=== PATIENT | female | born 1965 | race Caucasian/White ===

== ENCOUNTER 2019-05-06 07:27 | Day surgery (SDC) | payer BC ==
[~2019-05-06 07:27] MED LIST: Midazolam 1 MG/ML 2 ML SDV ONE; Propofol 200 MG/20 ML SDV ONE; fentaNYL 100 MCG/2 ML SDV ONE
[2019-05-06] MEDS ORDERED: Midazolam 1 MG/ML 2 ML SDV ONE (07:38)
[2019-05-06] MEDS ORDERED: fentaNYL 100 MCG/2 ML SDV ONE (07:38)
[2019-05-06] MEDS ORDERED: Propofol 200 MG/20 ML SDV ONE (07:38)
[2019-05-06] MEDS ORDERED: Sodium Chloride 0.9% 1,000 ML IV SCH (08:45)
--- NOTE | 2019-05-06 09:24 | OR ---
DATE OF PROCEDURE: 05/06/2019 SURGEON: Ketan Lynn MD PROCEDURE: Colonoscopy. FINDINGS: 1. Diverticulosis, mild, limited to sigmoid colon. 2. No other gross abnormalities. COMPLICATIONS: None. PER DIEM NURSE: None. ANESTHESIA: MAC. PREOPERATIVE DIAGNOSIS: Screening colonoscopy. POSTOPERATIVE DIAGNOSIS: Screening colonoscopy. RISKS: Risks, benefits, alternatives, and limitations including, but not limited to infection, bleeding, and perforation were explained to the patient, they wished to proceed. PROCEDURE IN DETAIL: The patient was placed in left lateral decubitus position. Digital rectal exam was performed without abnormality. Scope was introduced and advanced atraumatically to the ileocecal valve. A photo was taken of this. Scope was brought back through the ascending, transverse, descending colon, and retroflexed. No evidence of old or new blood. No masses. No polyps. The diverticulosis would be described as limited to sigmoid colon without evidence of old or new blood or infection. The patient tolerated the procedure well. Ketan Lynn MD /[id number]
[2019-05-06 09:50] VITALS: BP 109/57; PULSE 50
== END 2019-05-06 10:10 | disposition home or self-care (01) ==
LOC: JP.SDS 07:27
PROVIDERS: ATTEND Surgery
DX: Z12.11 Encounter for screening for malignant neoplasm of colon (principal); K57.30 Diverticulosis of large intestine without perforation or abscess without bleeding; J44.9 Chronic obstructive pulmonary disease, unspecified; F17.200 Nicotine dependence, unspecified, uncomplicated
CPT/HCPCS: 45378; J2250; J2704; J3010; J7030

== ENCOUNTER 2023-07-05 18:45 | Emergency (ER) | payer BC, OTHER ==
[2023-07-05 19:34] VITALS: BP 99/62; PULSE 71
[2023-07-05 20:05] LABS: BASOPHILS ABSOLUTE AUTO 0.06 K/uL (0.00-0.10); BASOPHILS PERCENT AUTO 0.8 % (0.1-1.3); EOSINOPHILS ABSOLUTE AUTO 1.24 K/uL (0.00-0.40); EOSINOPHILS PERCENT AUTO 16.7 % (0.0-5.4); HEMATOCRIT 38.8 % (34.3-46.0); HEMOGLOBIN 13.3 g/dL (11.2-15.5); IMMATURE GRAN PERCENT AUTO 0.3 % (0.0-0.7); LYMPHOCYTES PERCENT AUTO 36.4 % (11.4-47.7); MEAN CORPUSCULAR HEMOGLOBIN 31.8 pg (31.6-35.5); MEAN CORPUSCULAR HGB CONC 34.3 g/dL (31.6-35.5); MEAN CORPUSCULAR VOLUME 92.8 fL (81.4-99.0); MONOCYTES ABSOLUTE AUTO 0.51 K/uL (0.20-0.90); MONOCYTES PERCENT AUTO 6.9 % (3.3-12.6); NEUTROPHILS ABSOLUTE AUTO 2.88 K/uL (1.0-7.6); NEUTROPHILS PERCENT AUTO 38.9 % (40.0-78.1); PLATELET COUNT,PLT 274 K/uL (130-375); RED BLOOD CELL COUNT 4.18 M/uL (3.77-5.24); WHITE BLOOD CELL COUNT,WBC 7.4 K/uL (3.2-11.0)
[2023-07-05 20:06] LABS: IMMATURE GRAN ABSOLUTE AUTO 0.02 K/uL (0.00-0.23)
[2023-07-05 20:21] LABS: ANION GAP 9.8 mmol/L (5.0-14.0); CALCIUM 8.6 mg/dL (8.5-10.1); CREATININE 0.7 mg/dL (0.6-1.0); EST CRCL DRUG DOSING (CG) 85.19 mL/min
== END 2023-07-05 21:11 | disposition home or self-care (01) ==
LOC: JP.ED 18:45
DX: J20.9 Acute bronchitis, unspecified (principal); J01.01 Acute recurrent maxillary sinusitis; F17.210 Nicotine dependence, cigarettes, uncomplicated
CPT/HCPCS: 36415; 71046; 71046-26; 80048; 85025; 99283

== ENCOUNTER 2025-06-15 21:27 | Emergency (ER) | payer OTHER ==
[2025-06-15] MEDS ORDERED: methylPREDNISolone Sodium Succinate 40 MG/1 ML SDV ONE (21:59)
[2025-06-15] MEDS: methylPREDNISolone Sodium Succinate 40 MG/1 ML SDV IM ONE (22:05)
[2025-06-15 22:24] VITALS: BP 103/52; PULSE 60
== END 2025-06-15 22:25 | disposition home or self-care (01) ==
LOC: JP.ED 21:27
DX: J44.1 Chronic obstructive pulmonary disease with (acute) exacerbation (principal); F17.210 Nicotine dependence, cigarettes, uncomplicated; Z79.899 Other long term (current) drug therapy; Z86.16 Personal history of COVID-19; Z90.710 Acquired absence of both cervix and uterus
CPT/HCPCS: 96372; 99283; J2919